=== PATIENT | female | born 1995 | race Caucasian/White ===

== ENCOUNTER 2016-05-08 09:12 | Emergency (ER) | payer SELFPAY ==
[~2016-05-08] VITALS: Ht 157.5 cm; Wt 50.5 kg
[2016-05-08 09:15] VITALS: Ht 157.5 cm; Wt 50.5 kg
[2016-05-08] MEDS ORDERED: SODIUM CHLORIDE 0.9% 1000ML 1,000 ML IV STA (09:45)
[2016-05-08 09:49] LABS: MANUAL MICROSCOPIC REQUIRED? NO; URINE APPEARANCE CLEAR (CLEAR); URINE BILIRUBIN NEG (NEG); URINE COLOR YELLOW; URINE NITRITE NEG (NEG); URINE PH 5.5 (4.5-7.5); URINE SPECIFIC GRAVITY 1.025 (1.000-1.030); UROBILINOGEN NEG (NEG)
[2016-05-08 09:50] LABS: REVIEW REQ? NO; ZZUR CULT IF INDIC CLEAN CATCH NO
[2016-05-08 09:51] LABS: BASO % 0.2 %; BASO ABS # 0.02 K/uL (0-0.2); COMPLETE YES; EOS % 0.3 %; HEMATOCRIT 36.6 % (37-47); IG% 0.4 %; LYMPH % 8.9 %; LYMPH ABS # 1.02 K/uL (1.2-3.4); MEAN CELL VOLUME 100.3 fL (80-100); MEAN CORPUSCULAR HEMOGLOBIN 33.7 pg (25-34); MEAN CORPUSCULAR HGB CONC 33.6 g/dl (32-36); MEAN PLATELET VOLUME 9.9 fL (7.4-10.4); MONO % 4.6 %; NEUT % 85.6 %; PLATELET COUNT 233 K/uL (130-400); RED BLOOD COUNT 3.65 M/uL (4.2-5.4)
[2016-05-08 10:10] LABS: BLOOD UREA NITROGEN 8 mg/dl (7-18); CREATININE 0.52 mg/dl (0.60-1.20); GLUCOSE 89 mg/dl (70-99)
[2016-05-08 10:11] LABS: ALT/SGPT 26 U/L (12-78); BUN/CREATININE RATIO 14.8 (10-20); CALCIUM 9.1 mg/dl (8.5-10.1); CARBON DIOXIDE 28 mmol/L (21-32); CHLORIDE 105 mmol/L (98-107); POTASSIUM 3.8 mmol/L (3.5-5.1); SODIUM 142 mmol/L (136-145)
[2016-05-08] MEDS ORDERED: OPTIRAY 320 IV PRN (10:15)
[2016-05-08 10:17] LABS: ALKALINE PHOSPHATASE 76 U/L (45-117); AST/SGOT 9 U/L (15-37)
--- NOTE | 2016-05-08 10:20 | DIAGNOSTIC IMAGING REPORT ---
CHEST ONE VIEW PORTABLE CLINICAL HISTORY: cp dyspnea COMPARISON STUDY: No previous studies for comparison. FINDINGS: The bones soft tissues and hemidiaphragms are normal. The cardiomediastinal silhouette is normal. The lungs are clear. The pulmonary vasculature is normal. IMPRESSION: Negative chest. Electronically signed by: Hugo Pedroza M.D. 05/08/2016 10:19 AM Dictated Date/Time: 05/08/2016 10:18 AM
--- NOTE | 2016-05-08 10:38 | DIAGNOSTIC IMAGING REPORT ---
Right upper quadrant ultrasound GALLBLADDER-ABD LIMITED CLINICAL HISTORY: rug abd pain pain. Nausea. TECHNIQUE: Ultrasound COMPARISON STUDY: None FINDINGS: Normal gallbladder. Common bile duct 4 mm. Liver is homogeneous throughout. Pancreas and right kidney are unremarkable. IMPRESSION: Normal study Electronically signed by: Hugo Pedroza M.D. 05/08/2016 10:36 AM Dictated Date/Time: 05/08/2016 10:36 AM
--- NOTE | 2016-05-08 11:10 | DIAGNOSTIC IMAGING REPORT ---
CHEST CTA for PULMONARY ARTERIES CT DOSE: 186.23 mGy.cm HISTORY: Chest pain dyspnea TECHNIQUE: Multiaxial CT images of the chest were performed following the intravenous administration of contrast to evaluate the pulmonary arteries. Maximal intensity projection images were also obtained. COMPARISON STUDY: None. FINDINGS: There is a normal caliber thoracic aorta with no evidence for dissection. There is no evidence for pulmonary embolus. No pleural effusions. No pneumothorax. The liver and spleen are unremarkable. No mediastinal or hilar lymphadenopathy. The central airways are patent. The lungs are clear. IMPRESSION: No evidence for pulmonary embolus. The lungs are clear Electronically signed by: Hugo Pedroza M.D. 05/08/2016 11:09 AM Dictated Date/Time: 05/08/2016 11:06 AM
[2016-05-08] MEDS ORDERED: KETOROLAC TROMETHAMINE 30 MG/ML VIAL IV STA (11:49)
[2016-05-08 12:01] VITALS: BP 110/72; PULSE 68; TEMP 37.2; O2SAT 98
--- NOTE | 2016-05-08 16:44 | EMERGENCY ROOM VISIT NOTE ---
History Report prepared by Ame: Miguel Patel Under the Supervision of: Dr. Angelo Alvarado D.O. First contact with patient: 09:22 Chief Complaint: ABDOMINAL PAIN Stated Complaint: STOMACH/CHEST PAIN, HURTS TO BREATHE Nursing Triage Summary: Triage Note: Pt reports right abd/rib pain "it hurts when i take a deep breath in." pt reports nausea. pt reports "i have a little bit of constipation i last had a bm two days ago." pt reports symptoms started approx 1 week ago. History of Present Illness The patient is a 20 year old female who presents to the Emergency Room with complaints of right sided upper abdominal pain that began 1 week ago. The patient rates her current pain a 9/10 in severity. At this time, she began having this constant abdominal pain. She also began to experience pain with urination, more frequent urination, nausea, lightheadedness, and intermittent chest pain. Her chest pain happens a couple of times per day and only lasts a few minutes. Her abdominal pain worsens with deep breathing. She denies headache , change in vision, fevers, shortness of breath, vomiting, diarrhea, and melena. She has not had any recent eating or drinking changes. She has never had a UTI before. She states that she could be . She denies any vaginal bleeding or discharge. No recent trauma. Source of History: patient Onset: 1 week ago Position: abdomen (RUQ) Symptom Intensity: 9/10 Quality: sharp Timing: constant Modifying Factors (Worsening): breathing Associated Symptoms: + chest pain, + nausea, + urinary symptoms, No SOB, No chills, No cough, No diarrhea, No fevers, No headache, No melena, No sorethroat , No vomiting Review of Systems See HPI for pertinent positives & negatives. A total of 10 systems reviewed and were otherwise negative. Past Medical & Surgical Medical Problems: (1) No Known Active Medical Problems Family History Patient reports no known family medical history. Social History Smoking Status: Current Every Day Smoker Smokeless Tobacco Use: No Drug Use: none Marital Status: in relationship Occupation Status: employed Current/Historical Medications No Active Prescriptions or Reported Meds Allergies Coded Allergies: No Known Allergies (Unverified , 05/08/16) Physical Exam Vital Signs Date Time Temp Pulse Resp B/P Pulse Ox O2 Delivery O2 Flow Rate FiO2 05/08/16 12:01 37.2 68 16 110/72 98 Room Air 05/08/16 10:57 70 16 107/72 98 05/08/16 09:15 37.2 120 18 118/70 98 Room Air Physical Exam GENERAL: Sitting up in bed, disheveled, alert, well nourished, no distress, non- toxic EYE EXAM: normal conjunctiva OROPHARYNX: no exudate, no erythema, lips, buccal mucosa, and tongue normal and mucous membranes are moist NECK: supple, no nuchal rigidity, no adenopathy, non-tender LUNGS: Clear to auscultation. Normal chest wall mechanics HEART: no murmurs, S1 normal and S2 normal ABDOMEN: abdomen soft, tender to RUQ secondary to palpation, normo-active bowel sounds, no masses, no rebound or guarding. BACK: Back is symmetrical on inspection and there is no deformity, no midline tenderness, no CVA tenderness. SKIN: no rashes and no bruising UPPER EXTREMITIES: upper extremities are grossly normal. LOWER EXTREMITIES: No pitting edema. NEURO EXAM: Normal sensorium, cranial nerves II-XII grossly intact, normal speech, no gross weakness of arms, no gross weakness of legs. Medical Decision & Procedures ER Provider Diagnostic Interpretation: Xray results per the radiologist and my interpretation. Other results have been interpreted by the radiologist and reviewed by me. Right upper quadrant ultrasound GALLBLADDER-ABD LIMITED CLINICAL HISTORY: rug abd pain pain. Nausea. TECHNIQUE: Ultrasound COMPARISON STUDY: None FINDINGS: Normal gallbladder. Common bile duct 4 mm. Liver is homogeneous throughout. Pancreas and right kidney are unremarkable. IMPRESSION: Normal study Electronically signed by: Hugo Pedroza M.D. 05/08/2016 10:36 AM Dictated Date/Time: 05/08/2016 10:36 AM CHEST ONE VIEW PORTABLE CLINICAL HISTORY: cp dyspnea COMPARISON STUDY: No previous studies for comparison. FINDINGS: The bones soft tissues and hemidiaphragms are normal. The cardiomediastinal silhouette is normal. The lungs are clear. The pulmonary vasculature is normal. IMPRESSION: Negative chest. Electronically signed by: Hugo Pedroza M.D. 05/08/2016 10:19 AM Dictated Date/Time: 05/08/2016 10:18 AM CHEST CTA for PULMONARY ARTERIES CT DOSE: 186.23 mGy.cm HISTORY: Chest pain dyspnea TECHNIQUE: Multiaxial CT images of the chest were performed following the intravenous administration of contrast to evaluate the pulmonary arteries. Maximal intensity projection images were also obtained. COMPARISON STUDY: None. FINDINGS: There is a normal caliber thoracic aorta with no evidence for dissection. There is no evidence for pulmonary embolus. No pleural effusions. No pneumothorax. The liver and spleen are unremarkable. No mediastinal or hilar lymphadenopathy. The central airways are patent. The lungs are clear. IMPRESSION: No evidence for pulmonary embolus. The lungs are clear Electronically signed by: Hugo Pedroza M.D. 05/08/2016 11:09 AM Dictated Date/Time: 05/08/2016 11:06 AM Laboratory Results 05/08/16 09:40 Red Blood Count 3.65, Mean Corpuscular Volume 100.3, Mean Corpuscular Hemoglobin 33.7, Mean Corpuscular Hemoglobin Concent 33.6, Mean Platelet Volume 9.9, Neutrophils (%) (Auto) 85.6, Lymphocytes (%) (Auto) 8.9, Monocytes (%) ( Auto) 4.6, Eosinophils (%) (Auto) 0.3, Basophils (%) (Auto) 0.2, Neutrophils # ( Auto) 9.75, Lymphocytes # (Auto) 1.02, Monocytes # (Auto) 0.53, Eosinophils # ( Auto) 0.03, Basophils # (Auto) 0.02 05/08/16 09:40 Test 05/08/16 09:40 White Blood Count 11.40 K/uL (4.8-10.8) Red Blood Count 3.65 M/uL (4.2-5.4) Hemoglobin 12.3 g/dL (12.0-16.0) Hematocrit 36.6 % (37-47) Mean Corpuscular Volume 100.3 fL (80-100) Mean Corpuscular Hemoglobin 33.7 pg (25-34) Mean Corpuscular Hemoglobin Concent 33.6 g/dl (32-36) Platelet Count 233 K/uL (130-400) Mean Platelet Volume 9.9 fL (7.4-10.4) Neutrophils (%) (Auto) 85.6 % Lymphocytes (%) (Auto) 8.9 % Monocytes (%) (Auto) 4.6 % Eosinophils (%) (Auto) 0.3 % Basophils (%) (Auto) 0.2 % Neutrophils # (Auto) 9.75 K/uL (1.4-6.5) Lymphocytes # (Auto) 1.02 K/uL (1.2-3.4) Monocytes # (Auto) 0.53 K/uL (0.11-0.59) Eosinophils # (Auto) 0.03 K/uL (0-0.5) Basophils # (Auto) 0.02 K/uL (0-0.2) RDW Standard Deviation 49.1 fL (36.4-46.3) RDW Coefficient of Variation 13.4 % (11.5-14.5) Immature Granulocyte % (Auto) 0.4 % Immature Granulocyte # (Auto) 0.05 K/uL (0.00-0.02) D-Dimer 2760 ug/L FEU (0-500) Urine Color YELLOW Urine Appearance CLEAR (CLEAR) Urine pH 5.5 (4.5-7.5) Urine Specific [place] 1.025 (1.000-1.030) Urine Protein NEG (NEG) Urine Glucose (UA) NEG (NEG) Urine Ketones NEG (NEG) Urine Occult Blood NEG (NEG) Urine Nitrite NEG (NEG) Urine Bilirubin NEG (NEG) Urine Urobilinogen NEG (NEG) Urine Leukocyte Esterase NEG (NEG) Urine Test NEG (NEG) Anion Gap 9.0 mmol/L (3-11) Est Creatinine Clear Calc Drug Dose 136.5 ml/min Estimated GFR () > 150.0 Estimated GFR (Non- 137.5 BUN/Creatinine Ratio 14.8 (10-20) Calcium Level 9.1 mg/dl (8.5-10.1) Total Bilirubin 0.4 mg/dl (0.2-1) Direct Bilirubin < 0.1 mg/dl (0-0.2) Aspartate Amino Transf (AST/SGOT) 9 U/L (15-37) Alanine Aminotransferase (ALT/SGPT) 26 U/L (12-78) Alkaline Phosphatase 76 U/L (45-117) Total Protein 8.0 gm/dl (6.4-8.2) Albumin 3.5 gm/dl (3.4-5.0) Lipase 63 U/L (73-393) Laboratory results per my review. Medications Administered Medications (Trade) Dose Ordered Sig/Mckenzie Route Start Time Stop Time Status Last Admin Dose Admin Sodium Chloride (Nss 1000ml) 1,000 ml @ 999 mls/hr Q1H1M STAT IV 05/08/16 09:45 05/08/16 10:45 DC 05/08/16 09:45 999 MLS/HR Ketorolac Tromethamine (Toradol Inj) 30 mg NOW STAT IV 05/08/16 11:49 05/08/16 11:50 DC 05/08/16 11:58 30 MG ECG Indication: chest pain Rate (beats per minute): 101 Rhythm: sinus tachycardia Findings: no ectopy, other (normal axis) ED Course ED COURSE: Vital signs were reviewed and showed tachycardia The patients medical record was reviewed The above diagnostic studies were performed and reviewed. ED treatments and interventions as stated above. 0922: The patient was evaluated in room B8. A complete history and physical examination was performed. 0945: Ordered Sodium Chloride 1000 ml @ 999 mls/hr IV 1148: The patient is still having some pain. She will follow up with her PCP. 1149: Ordered Toradol Inj 30 mg IV 1215: Upon reevaluation, the patient is resting.I discussed my findings with the patient and she understands and agrees with the treatment plan. The patient remained stable while under my care. The patient appeared well at the time of discharge. Medical Decision Differential diagnoses includes but is not limited to gastritis, peptic ulcer disease, GERD, gallbladder disease, pancreatitis, small bowel obstruction, acute coronary syndrome, pericarditis, ischemic bowel, irritable bowel disease, irritable bowel syndrome, appendicitis, diverticulitis, malignancy, hernia, urinary tract infection, torsion, /ectopic , perforation, trauma, infectious. Patient is a 20-year-old female who presents the ER for right upper quadrant abdominal pain. She notes that this has been present for the past week. She does also complain of some urinary frequency. Abdominal exam was fairly benign. Labs were obtained and show no significant leukocytosis or anemia. BMP along with LFTs, bilirubin and lipase were unremarkable. UA was negative. Urine was negative. Chest x-ray was unremarkable. D-dimer was elevated and CT PE was performed which was negative. Ultrasound gallbladder was unremarkable. With her unremarkable workup and no signs peritonitis a did not feel the need to CT her abdomen. She was given IV fluids and Toradol. Pain sniffling improved. She is instructed to follow-up with her primary care doctor as this still could be a gallbladder but there is no signs of acute cholecystitis or choledocholithiasis. Discussed with Pt concerning signs and symptoms to watch out for. Pt was instructed to follow up with their PCP and discussed with the patient their option to return to the ED at anytime for persistent or worsening symptoms. The appropriate anticipatory guidance and out- patient management, including indications for return to the emergency department , were explained at length to the patient and understood. Impression Primary Impression: Right upper quadrant abdominal pain Scribe Attestation The scribe's documentation has been prepared under my direction and personally reviewed by me in its entirety. I confirm that the note above accurately reflects all work, treatment, procedures, and medical decision making performed by me. Departure Information Dispostion Home / Self-Care Prescriptions No Active Prescriptions or Reported Meds Referrals No Doctor, Assigned (PCP) Forms HOME CARE DOCUMENTATION FORM, IMPORTANT VISIT INFORMATION Patient Instructions Abdominal Pain - [facility], [facility] Additional Instructions Please follow up with your primary care doctor or if you are a student [facility] services with in the next 24 hours. Any worsening of your symptoms, please return to the ED immediately. This includes fevers greater than 100.4, worsening abdominal pain, unable to eat or drink, significant pain on palpation of the abdomen, or any other concerning signs or symptoms from your stand point.
== END 2016-05-08 12:11 | disposition home or self-care (01) ==
LOC: C.EDB 09:14
DX: R10.11 Right upper quadrant pain (principal); F17.200 Nicotine dependence, unspecified, uncomplicated